=== PATIENT | male | born 2000 | race Caucasian/White ===

== ENCOUNTER 2019-02-18 13:30 | Emergency (ER) | payer MEDICAID, SELFPAY ==
[2019-02-11 14:28] VITALS: BMI 16.0
[2019-02-18 13:30] VITALS: BP 118/76; PULSE 111; RESP 18; TEMP 36.8; O2SAT 98; BMI 16.7
[2019-02-18 14:55] LABS: Absolute Lymphocyte Count 2.23 X10^3/uL (0.83-4.51); Absolute Neutrophil Count 5.8 X10^3/uL (2.0-7.7); Basophil# 0.03 X10^3/uL; Basophil% 0.3 % (0-1); Eosinophil# 0.48 X10^3/uL; Eosinophils% 5.3 % (0-5); Hematocrit 44.3 % (40-54); Lymphocyte # 2.23 X10^3/ul (4.0); Lymphocyte % 24.5 % (19-41); Mean Corp Hgb Conc 33.9 g/dL (32-36); Mean Corpuscular Hgb 30.5 pg (27.0-32.0); Mean Corpuscular Volume 90.2 fL (80-94); Mean Platelet Vol. 9.3 fl (6.2-12.0); Monocyte# 0.58 X10^3/uL; Monocyte% 6.4 % (0-10); NRBC Flagged by Analyzer 0 % (0-5); Neutrophil # 5.75 X10^3/uL (2.7-7.7); Neutrophil % 63.3 % (47-70); Platelet Count 300 K/mm3 (150-450); RBC Distribution Width CV 12.6 % (11.6-14.6); RBC Distribution Width SD 41.6 fl (35.1-43.9); Red Blood Count 4.91 M/mm3 (4.6-6.2); White Blood Count 9.1 K/mm3 (4.4-11.0)
[2019-02-18 15:12] LABS: AST(SGOT) 23 U/L (15-37); Alanine Aminotransfer ALT/SGPT 31 U/L (16-61); Albumin, Serum 4.3 g/dL (3.2-5.0); Alkaline Phosphatase 87 U/L (45-117); Anion Gap 4 (5-15); BUN 10 mg/dL (7-18); BUN/Creat Ratio 14.5 RATIO (10-20); Bilirubin, Direct 0.13 mg/dL (0.00-0.30); Calcium,Total 9.1 mg/dL (8.5-10.1); Chloride 108 mmol/L (98-107); Creatinine, Serum 0.69 mg/dL (0.70-1.30); EST Glomerular Filtration Rate 155 mL/min (>60); Est Glom Filt Rate - Afr Amer 187 mL/min (>60); Estimated Creatinine Clearance 124.64 ml/min; Globulin 3.8 g/dL (2.2-4.2); Glucose 117 mg/dL (74-106); Lipase 143 U/L (73-393); Potassium 3.8 mmol/L (3.5-5.1); Protein, Total 8.1 g/dL (6.4-8.2); Sodium Level 142 mmol/L (136-145)
--- NOTE | 2019-02-18 15:22 | ED.DCSUM_ITS ---
History of Present Illness Chief Complaint: GI Bleed Narrative: 18-year-old male with a history of autism presents with blood in his stool for the past several months. He saw the mechatronics technician in [place] and had negative stool studies. He was recommended to have a colonoscopy. They have been unable to find a GI doctor that will take his care source insurance. His symptoms have not become suddenly worse. He is still having brown formed stool but with occasional streaks of blood mixed in with it. No dark or tarry stool. No vomiting. No recent weight loss. No fever/chills. He does not appear to be complaining of any rectal discomfort or abdominal discomfort. History from the patient himself is somewhat limited because of his underlying mental status. Past Medical History - Allergies and Home Meds Allergies/Adverse Reactions: Allergies Macrolide Antibiotics Allergy (Intermediate, Verified 02/18/19 13:32) Hives phenytoin [From Dilantin] Allergy (Intermediate, Verified 02/18/19 13:32) hives Penicillins Allergy (Verified 02/18/19 13:32) Unknown Primary Care Physician: Rod Tate MD [Primary Care Provider] - Smoking Status: Never smoker Review of Systems ROS: Unable to Obtain Gastrointestinal: Reports: Hematochezia. Denies: Diarrhea, Constipation, Melena Physical Exam Vital Signs/Narrative: Vital Signs Temp Pulse Resp BP Pulse Ox 02/18/19 13:30 98.2 F 111 H 18 118/76 98 General: Well nourished, Well developed, No Acute Distress Head: Normocephalic, Atraumatic Eyes: Perrl, EOMI ENT: Moist mucous membranes, No rhinorrhea Neck: Supple, Nontender Cardiovascular: Regular rate, Regular rhythm, No murmurs Respiratory: No distress, CTA bilaterally, Chest nontender Abdomen: Soft, Nontender, Nondistended, Normal bowel sounds Back: Nontender, Normal Inspection Extremities: Nontender, No edema Skin: Normal color, No rash Neurological: Alert, Oriented x3, Cranial nerves II-XII grossly intact, Normal Strength, Normal Sensation Psychological: Normal affect, Normal Mood Diagnostic/Tx/Re-eval - Medical Decision Making Labs are fairly unremarkable. He is not anemic. BUN not elevated. His parents state that he has already undergone imaging including a CT scan so I did not feel it was necessary to repeat it with his normal blood work. I do feel it is reasonable for him to follow-up with a GI doctor however and undergo colonoscopy. I will make a referral. He is already established at [facility] and is able to be seen there until he is 19. I think the safest approach for now would be for him to undergo the colonoscopy there because they know for sure that his insurance is accepted. They can then make a referral to an adult mechatronics technician if indicated. He looks quite well and is not in any distress. He was somewhat resistant to a rectal examination and his parents state that because of his underlying condition, he will not want to undergo this procedure. Since his hemoglobin is normal, I do not feel that we will change the course of treatment currently. ED Disposition - Plan for ED Patient: Disposition: Home or Assisted Living Diagnosis: Rectal bleeding Instructions: RECTAL BLEED, Stable Referrals: Rod Tate MD [Primary Care Provider] -
--- NOTE | 2019-02-18 15:52 | ED.RN ---
1540-in with dr. haro to do rectal exam. no sign of bleeing or hemorhoid noted.
== END 2019-02-18 15:53 | disposition home or self-care (01) ==
PROVIDERS: Emergency Provider Emergency Medicine; Family Provider Internal Medicine; PCP Internal Medicine
DX: K62.5 Hemorrhage of anus and rectum (principal)
CPT/HCPCS: 80048; 80076; 83690; 85025; 99283; A4216

== ENCOUNTER → 2021-05-17 13:32 | Outpatient (CLI) | payer MEDICAID, SELFPAY ==
[2021-05-17 15:17] LABS: Absolute Lymphocyte Count 2.83 X10^3/uL (0.83-4.51); Basophil# 0.05 X10^3/uL; Basophil% 0.5 % (0-1); Eosinophil# 0.92 X10^3/uL; Eosinophils% 9.6 % (0-5); Hematocrit 49.3 % (40-54); Hemoglobin 16.4 g/dL (13.0-16.5); Lymphocyte # 2.83 X10^3/ul (0.83-4.51); Lymphocyte % 29.6 % (19-41); Mean Corp Hgb Conc 33.3 g/dL (32-36); Mean Corpuscular Hgb 29.1 pg (27.0-32.0); Mean Corpuscular Volume 87.4 fL (80-94); Monocyte# 0.75 X10^3/uL; Monocyte% 7.8 % (0-10); NRBC Flagged by Analyzer 0 % (0-5); Neutrophil # 4.98 X10^3/uL (2.7-7.7); Neutrophil % 52.1 % (47-70); Platelet Count 309 K/mm3 (150-450); RBC Distribution Width CV 12.6 % (11.6-14.6); RBC Distribution Width SD 40.1 fl (35.1-43.9); Red Blood Count 5.64 M/mm3 (4.6-6.2); White Blood Count 9.6 K/mm3 (4.4-11.0)
[2021-05-17 15:40] LABS: ALB/GLOB Ratio 0.8 RATIO (0.9-2.4); AST(SGOT) 39 U/L (15-37); Alanine Aminotransfer ALT/SGPT 74 U/L (16-61); Albumin, Serum 3.7 g/dL (3.2-5.0); Alkaline Phosphatase 132 U/L (45-117); Anion Gap 8 (5-15); BUN 13 mg/dL (7-18); BUN/Creat Ratio 19.6 RATIO (10-20); Calcium,Total 9.4 mg/dL (8.5-10.1); Chloride 105 mmol/L (98-107); Creatinine, Serum 0.66 mg/dL (0.70-1.30); EST Glomerular Filtration Rate 159 mL/min (>60); Est Glom Filt Rate - Afr Amer 192 mL/min (>60); Globulin 4.4 g/dL (2.2-4.2); Glucose 110 mg/dL (74-106); Protein, Total 8.1 g/dL (6.4-8.2); Sodium Level 139 mmol/L (136-145)
== END ==
PROVIDERS: PCP Internal Medicine; Visit Provider Internal Medicine
DX: Z01.818 Encounter for other preprocedural examination (principal); F32.9 Major depressive disorder, single episode, unspecified; F41.9 Anxiety disorder, unspecified; F84.0 Autistic disorder
CPT/HCPCS: 36415; 80053; 85025

== ENCOUNTER 2021-08-08 13:30 | Outpatient (CLI) | payer MEDICAID, SELFPAY ==
[2021-08-08 15:14] LABS: Absolute Lymphocyte Count 2.89 X10^3/uL (0.83-4.51); Absolute Neutrophil Count 4.8 X10^3/uL (2.0-7.7); Basophil# 0.04 X10^3/uL; Basophil% 0.4 % (0-1); Eosinophil# 0.67 X10^3/uL; Eosinophils% 7.4 % (0-5); Hematocrit 51.2 % (40-54); Hemoglobin 17.4 g/dL (13.0-16.5); Lymphocyte # 2.89 X10^3/ul (0.83-4.51); Lymphocyte % 31.7 % (19-41); Mean Corpuscular Hgb 29.8 pg (27.0-32.0); Mean Corpuscular Volume 87.7 fL (80-94); Mean Platelet Vol. 11.1 fl (6.2-12.0); Monocyte# 0.71 X10^3/uL; Monocyte% 7.8 % (0-10); NRBC Flagged by Analyzer 0 % (0-5); Neutrophil # 4.77 X10^3/uL (2.7-7.7); Neutrophil % 52.4 % (47-70); Platelet Count 252 K/mm3 (150-450); RBC Distribution Width CV 13.1 % (11.6-14.6); RBC Distribution Width SD 41.6 fl (35.1-43.9); Red Blood Count 5.84 M/mm3 (4.6-6.2); White Blood Count 9.1 K/mm3 (4.4-11.0)
[2021-08-08 15:39] LABS: ALB/GLOB Ratio 0.9 RATIO (0.9-2.4); AST(SGOT) 28 U/L (15-37); Alanine Aminotransfer ALT/SGPT 63 U/L (16-61); Alkaline Phosphatase 143 U/L (45-117); Anion Gap 7 (5-15); BUN 11 mg/dL (7-18); BUN/Creat Ratio 14.6 RATIO (10-20); Chloride 107 mmol/L (98-107); Creatinine, Serum 0.75 mg/dL (0.70-1.30); EST Glomerular Filtration Rate 137 mL/min (>60); Est Glom Filt Rate - Afr Amer 165 mL/min (>60); Globulin 4.4 g/dL (2.2-4.2); Glucose 95 mg/dL (74-106); Protein, Total 8.4 g/dL (6.4-8.2); Sodium Level 140 mmol/L (136-145); Thyroid Stim Hormone (TSH) 0.85 uIU/mL (0.358-3.74)
== END 2021-08-08 23:59 | disposition home or self-care (01) ==
LOC: BIMLAB 13:31
PROVIDERS: PCP Internal Medicine; Referring Provider Nurse Practitioner Family; Visit Provider Nurse Practitioner Family
DX: Z01.818 Encounter for other preprocedural examination (principal)
CPT/HCPCS: 36415; 80053; 84443; 85025

== ENCOUNTER 2021-10-05 15:25 | Outpatient (CLI) | payer MEDICAID, SELFPAY ==
[2021-10-05 15:58] LABS: Absolute Lymphocyte Count 2.67 X10^3/uL (0.83-4.51); Absolute Neutrophil Count 5.6 X10^3/uL (2.0-7.7); Basophil# 0.02 X10^3/uL; Basophil% 0.2 % (0-1); Eosinophil# 0.38 X10^3/uL; Hematocrit 47.9 % (40-54); Hemoglobin 16.4 g/dL (13.0-16.5); Lymphocyte # 2.67 X10^3/ul (0.83-4.51); Lymphocyte % 28.3 % (19-41); Mean Corp Hgb Conc 34.2 g/dL (32-36); Mean Corpuscular Hgb 29.4 pg (27.0-32.0); Mean Platelet Vol. 9.3 fl (6.2-12.0); Monocyte# 0.71 X10^3/uL; Monocyte% 7.5 % (0-10); NRBC Flagged by Analyzer 0 % (0-5); Neutrophil # 5.63 X10^3/uL (2.7-7.7); Neutrophil % 59.6 % (47-70); Platelet Count 332 K/mm3 (150-450); RBC Distribution Width CV 12.5 % (11.6-14.6); RBC Distribution Width SD 38.8 fl (35.1-43.9); Red Blood Count 5.57 M/mm3 (4.6-6.2); White Blood Count 9.5 K/mm3 (4.4-11.0)
[2021-10-05 16:02] LABS: Erythrocyte Sedimentation Rate 15 mm/hr (0-20)
[2021-10-05 16:06] LABS: Prothrombin Time (Protime)PT. 13.1 SECONDS (11.7-14.9)
[2021-10-05 16:41] LABS: Hemoglobin A1c 5.2 % (3.8-5.6)
[2021-10-05 17:00] LABS: AST(SGOT) 25 U/L (15-37); Alanine Aminotransfer ALT/SGPT 49 U/L (16-61); Albumin, Serum 4.1 g/dL (3.2-5.0); Alkaline Phosphatase 121 U/L (45-117); Anion Gap 6 (5-15); BUN 14 mg/dL (7-18); BUN/Creat Ratio 19.9 RATIO (10-20); CRP < 2.90 mg/L (0.0-3.0); Calcium,Total 9.1 mg/dL (8.5-10.1); Chloride 105 mmol/L (98-107); EST Glomerular Filtration Rate 147 mL/min (>60); Est Glom Filt Rate - Afr Amer 178 mL/min (>60); Ferritin 54 ng/mL (26-388); Glucose 100 mg/dL (74-106); LDH 193 U/L (87-241); Potassium 3.7 mmol/L (3.5-5.1); Protein, Total 8.1 g/dL (6.4-8.2); Sodium Level 136 mmol/L (136-145)
[2021-10-07 15:11] LABS: Anti-Centromere B Ab <0.2 AI (0.0-0.9); Anti-Chromatin <0.2 AI (0.0-0.9); Anti-Jo <0.2 AI (0.0-0.9); Anti-Scleroderma-70 AB <0.2 AI (0.0-0.9); RNP Ab <0.2 AI (0.0-0.9); SJOGREN'S Anti-SS-A test < 0.2 AI (0.0-0.9); SJOGREN'S Anti-SS-B test < 0.2 AI (0.0-0.9); Smith Ab <0.2 AI (0.0-0.9)
[2021-10-08 16:20] LABS: Anti-Mitochondrial AB <20.0 Units (0.0-20.0); Anti-dsDNA Ab <1 IU/mL (0-9)
[2021-10-13 22:07] LABS: Angiotensin Convert Enzyme 52 U/L (14-82); Ceruloplasmin 22.9 mg/dL (16.0-31.0); Cytoplasmic Ab (C-ANCA) <1:20 titer (Neg:<1:20); HEPATITIS B SURFACE AG Negative (Negative); Hepatitis A IgM Antibody Negative (Negative); Hepatitis B Core AB IgM Negative (Negative); Immunoglobulin A 257 mg/dL (90-386); Immunoglobulin E 25 IU/mL (6-495); Immunoglobulin G 1147 mg/dL (603-1613); Immunoglobulin M 118 mg/dL (20-172)
[2021-10-13 22:59] LABS: AFP, Tumor Marker 1.3 ng/mL (0.0-5.7); Anti-Smooth Muscle ABS 6 Units (0-19); Copper, Serum or Plasma 106 ug/dL (63-121); Haptoglobin 166 mg/dL (17-317); Hep C Antibodies 0.1 s/co ratio (0.0-0.9); Perinuclear Ab (P-ANCA) <1:20 titer (Neg:<1:20)
== END 2021-10-05 23:59 | disposition home or self-care (01) ==
LOC: LAB 15:26
PROVIDERS: PCP Internal Medicine; Referring Provider Internal Medicine Gastroenterology; Visit Provider Internal Medicine Gastroenterology
DX: K21.9 Gastro-esophageal reflux disease without esophagitis (principal); R79.89 Other specified abnormal findings of blood chemistry
CPT/HCPCS: 36415; 80053; 80074; 82105; 82140; 82164; 82390; 82525; 82728; 82784; 82785; 83010; 83036; 83516; 83615; 85025; 85610; 85652; 86140; 86225; 86235; 86256

== ENCOUNTER → 2021-10-25 | Outpatient (CLI) | payer MEDICAID, SELFPAY ==
--- NOTE | 2021-10-25 08:07 | US_ITS ---
STUDY: ABDOMINAL ULTRASOUND - RIGHT UPPER QUADRANT REASON FOR VISIT: Male, 21 years old elevated lft TECHNIQUE: Ultrasound evaluation of the right upper quadrant was performed with real-time and static yepez-scale imaging. TECHNICAL QUALITY: Limited. Examination limited due to the patient?s condition. COMPARISON: None. FINDINGS: Liver: The liver measures 14.6 cm. There is increased echogenicity consistent with fatty infiltration. The bile ducts are within normal limits. There is hepatic color flow. The direction of portal flow is hepatopetal. There is no demonstrated mass lesion. Gallbladder: Normal distended gallbladder. The gallbladder wall measures 2.0 mm. There is a negative sonographic Gonzales''s sign. There is no pericholecystic fluid. There are no gallstones. Common Bile Duct (C.B.D.): The common bile duct measures 3 mm. Pancreas: There is nonvisualization of the pancreas due to overlying bowel gas. Right Kidney: Normal size of the right kidney. The right kidney measures 10.5 cm x 4.8 cm x 5 cm. Normal renal cortex. The right cortex measures 1.5 cm. There is no demonstrated renal mass or cyst. There is no right hydronephrosis. US/Abdomen Limited IMPRESSION: Fatty infiltration of the liver. Electronically Signed: Abhi Reed MD at 9:33 EDT ,
--- NOTE | 2021-10-25 08:10 | US_ITS ---
STUDY: ABDOMINAL ULTRASOUND - ELASTOGRAPHY REASON FOR VISIT: Male, 21 years old. Elevated liver function tests. TECHNIQUE: Liver stiffness measurements were obtained on a [employer] RS 85 ultrasound machine using a CA 1-7 probe following the SRU guidelines. 3 measurements were obtained using a 2-D-SWE method. The IQR/M was 11% suggesting a quality data set. TECHNICAL QUALITY: Adequate. COMPARISON: Comparison is made with prior study done earlier in the day. FINDINGS: Liver: Fatty infiltration of the liver. Median liver stiffness measured 6.3 kPa. US/Elastography Parenchyma/Organ IMPRESSION: Liver stiffness measures 6.3 kPa compatible with F2-F3 (Mild to moderate liver fibrosis) Metavir score. Electronically Signed: Abhi Reed MD at 10:54 EDT ,
== END | disposition home or self-care (01) ==
LOC: US 07:59
PROVIDERS: PCP Internal Medicine; Visit Provider Internal Medicine Gastroenterology
DX: K21.9 Gastro-esophageal reflux disease without esophagitis (principal); R79.89 Other specified abnormal findings of blood chemistry
CPT/HCPCS: 76705; 76981

== ENCOUNTER 2022-01-01 07:43 | Day surgery (SDC) | payer MEDICAID, SELFPAY ==
[2022-01-01] VITALS (7 sets, daily range): BP systolic 97–127; BP diastolic 57–84; PULSE 47–91; RESP 16–18; TEMP 36.2–37.2; O2SAT 95–100; BMI 25.7
[2022-01-01] MEDS: Lactated Ringers 1,000 ML 15 ML IV (08:25)
--- NOTE | 2022-01-01 08:25 | PCM.HP.BLA ---
History and Physical Date of Admission: 01/01/22 ?Humza established with this clinic 10.05.21. He was previously seen by [facility] for diagnoses weight loss, blood in stool and EOE. History of nausea and vomiting that subsided in 2018/2018 timeframe. Additionally, has diagnoses of Autism causing anxiety and decreased social communication, sleep disturbance, decreased attentiveness. Seizure disorder. Father reports that he has been clearing his throat a lot recently and has also been asking for TUMs frequently. PCP prescribed omeprazole 40mg QD. Humza denies this waking him during the night, but that the burning in his chest bothers him. Father reports that his eating habits changes a couple months ago when Humza began reporting that certain foods (escobar) bothered his stomach. EGD performed 05.08.17 with biopsy results of duodenal mucosa with preserved jcgbf-wj-yciyese ratio without increase in intraepithelial lymphocytes; Stomach with chronic, inactive gastritis; Esophagus found EOE. H.Pylori negative. Allergen food panel negative for reaction to egg whites, cow?s milk, peanuts, soybeans, Kazakh walnuts, wheat, halibut, shrimp. Additional allergies to dust mites, perennial rye and jason grass. He was discovered to have some elevated liver function test and liver enzymes.? We got a FibroScan to evaluate his liver along with the liver ultrasound.? His liver ultrasound that showed a mildly enlarged liver with some fatty infiltrates along with some heterogenicity.? The FibroScan showed that he has a score of F2 F3.? He has lost some weight since the last time he was in the office.? There was some question to whether his liver enzymes were elevated secondary to medicine.? This was discussed with his family in the decision was to not get a liver biopsy at this time.? However if his repeat FibroScan does show worsening disease then he may need a liver biopsy. ROS Const Constitutional: No anorexia, fatigue, fever(s), weight change or sleep problems Eyes Eyes: No change in vision ENT ENT: No abnormal hearing, difficulty swallowing, mouth lesions, tongue swelling or throat swelling Resp Respiratory: No cough or shortness of breath Cardio Cardiology: No chest pain at rest, chest pain with exertion, shortness of breath or dyspnea on exertion Gastro GI: No difficulty swallowing Genitourinary Male: No difficulty urinating or burning urination Musc Musculoskeletal: No joint pain, joint swelling, muscle weakness or decreased muscle mass Skin Skin: No hair loss in leg, yellowing of the eye, itchy eyes, rash, skin ulcer or skin swelling Neuro Neurology: No abnormal hearing, abnormal movements, confusion, unsteady gait/balance or memory loss Psych Psychiatric: No anxiety, No confusion and No memory loss Endo Endocrine: No fatigue or weight change Aller/Imm Allergy/Immunologic: No itchy eyes, throat swelling or tongue swelling Mike/Lymp Hematologic/Lymphatic: No easy bleeding, easy bruising or enlarged lymph nodes Quality Reporting Tobacco Screening ([facility] 138) Smoking Status: Never smoker Assessment and Plan Assessment and Plan (1) Elevated LFTs: ?Status:?Acute ?Plan: Elevated liver enzymes thought to be secondary to nonalcoholic steatohepatitis.? He has a F2 to F3 score.? The plan will be to start him on ursodiol, vitamin E and or possible statin pending his serum cholesterol and triglycerides in the future.? I will repeat his Fibroscan in approximately 6 moths.? If there is a change and we will institute medical therapy and get a liver biopsy. (2) GERD (gastroesophageal reflux disease): ?Status:?Chronic ?Plan: Continue omeprazole at this time. (3) Eosinophilic esophagitis: ?Status:?Acute ?Plan: He is on omeprazole and we are assuming that this is PPI responsive eosinophilic esophagitis.? However he is having some regurgitation symptoms.? I suggested to his father that he undergo a video swallowing study however he does not think he is going to be very compliant with a study unless he is sedated.? We will perform an upper endoscopy to evaluate his previous diagnosis of eosinophilic esophagitis and we will possibly place a Dinh capsule to see if this is acid related regurgitation. I have re-examined the patient. There are no clinical changes since date of exam.
--- NOTE | 2022-01-01 08:45 | EGD_PTH ---
PATIENT: ASA YOUNGER LOC: JESS U#:[id number] AGE/SX: 21/M ROOM: RE01/01/[address]: Dr. Mohamud Grimes DO : 2000 BED: DIS: 01/01/2022 SPEC #: [id number] RECD: 01/01/22 09:52 STATUS: CHAVA SUKHDEEP #: [id number] JACKIE: 01/01/22 08:[address]: Mohamud Grimes DEPT: SURGICAL PATHOLOGY RECD BY: Kaelyn Talbot ENTERED: 01/01/22 13:00 SP TYPE: EGD BIOPSY [facility] DR: Dr. Rod Tate MD Tissues: A - Duodenum, NOS B - Pylorus C - Gastric fundus D - Stomach, NOS E - Esophagus, NOS Procedures: Special Stain Group II Surgery Specimen Level IV Alcian Blue/PAS (control) HEADER OPERATION: EGD ? PH probe ([facility]) PRE-OP DIAGNOSIS: Elevated LFTs, GERD, eosinophilic esophagitis TISSUE SUBMITTED: A ? Duodenum biopsy, B ? Pylorus biopsy, C ? Fundus biopsy, D ? GE junction biopsy, E ? Random esophagus biopsy MICROSCOPIC DIAGNOSIS A. Duodenum, biopsy: No pathologic change. B. Gastric pylorus, biopsy: Chronic inflammation. Focal intestinal metaplasia. No evidence of dysplasia. See comment. C. Gastric fundus, biopsy: Mild chronic inflammation. D. Gastroesophageal junction, biopsy: Gastroesophageal junctional mucosa with chronic inflammation. Focal changes of reflux. No evidence of goblet cell metaplasia. See comment. E. Esophagus, random biopsy: Consistent with eosinophilic esophagitis. Fragments of gastric mucosa with mild chronic inflammation. AM:ibrahima 01/02/2022 COMMENT B. The results of immunohistochemistry for Helicobacter pylori will be reported separately ([id number]). Alcian blue/PAS stain with matched control supports the above diagnosis. Immunohistochemistry ([id number]) for P53 and Ki-67 will be performed and results will be reported separately. D. Alcian blue/PAS stain with matched control supports the above diagnosis. MICROSCOPIC DESCRIPTION Slides are reviewed. GROSS DESCRIPTION A - Received in fixative is one container labeled with the patient's name and designated biopsy duodenum. The specimen consists of two irregular fragments of light garza soft tissue that in aggregate measure 0.6 x 0.3 x 0.1 cm. The specimen is totally submitted in one cassette. B - Received in fixative is one container labeled with the patient's name and designated biopsy pylorus. The specimen consists of one irregular fragment of light garza soft tissue that measures 0.3 x 0.3 x 0.1 cm. The specimen is totally submitted in one cassette. C - Received in fixative is one container labeled with the patient's name and designated biopsy fundus. The specimen consists of one irregular fragment of light garza soft tissue that measures 0.3 x 0.3 x 0.1 cm. The specimen is totally submitted in one cassette. D - Received in fixative is one container labeled with the patient's name and designated biopsy GE junction. The specimen consists of multiple irregular fragments of light garza soft tissue that in aggregate measure 0.5 x 0.4 x 0.1 cm. The specimen is totally submitted in one cassette. E - Received in fixative is one container labeled with the patient's name and designated biopsy random esophagus. The specimen consists of multiple irregular fragments of light garza soft tissue that in aggregate measure 1 x 0.2 x 0.1 cm. The specimen is totally submitted in one cassette. / SJ:rg 01/01/2022 TC:3 CPT: 72426 x5, 81454 x2
--- NOTE | 2022-01-01 08:45 | IMM_PTH ---
PATIENT: ASA YOUNGER LOC: EN U#:[id number] AGE/SX: 21/M ROOM: RE01/01/[address]: Dr. Mohamud Grimes DO : 2000 BED: DIS: 01/01/2022 SPEC #: [id number] RECD: 01/01/22 14:38 STATUS: CHAVA REQ #: [id number] JACKIE: 01/01/22 08:[address]: Mohamud Grimes DEPT: IMMUNOHISTOCHEMISTRY RECD BY: Louise Sanders ENTERED: 01/01/22 14:39 SP TYPE: IMMUNO OTHR DR: Dr. Rod Tate MD Tissues: B - Pyloric portion of stomach Procedures: H Pylori (initial) KI-67 (add) P53 (add) PHYSICIAN & INSTITUTION [place] [address] SPECIMEN INFORMATION: Tissue Source: B - Pylorus Clinical Info: Elevated LFTS, GERD, eosinophilic esophagitis Specimen Number: [id number] CPT code: 42396, 56715 x2 METHODOLOGY: Deparaffinized sections of prefer/formalin-fixed tissue or PAP/DQ stained slides are incubated with monoclonal/polyclonal antibodies/oligonucleotide probes. Localization is made via biotin free immunoperoxidase method. Appropriate controls are performed and reacted as expected. Results on target cell population are indicated in the following table: RESULTS: ANTIBODY / CLONE RESULT Block B H Pylori (polyclonal) negative P53 (DO-7) negative Ki-67 (30-9) positive, low These tests were developed and their performance characteristics determined by [facility]. They may not have been cleared or approved by the U.S. Food and Drug Administration. The FDA has determined that such clearance or approval is not necessary. The above immunohistochemical/dualISH markers are ordered and reviewed by the Pathologist. INTERPRETATION: B. Gastric pylorus, biopsy: Negative for Helicobacter pylori organisms. No evidence of dysplasia. AM:ibrahima 01/03/2022
--- NOTE | 2022-01-01 09:08 | OP.EGD_ITS ---
Patient Name: Humza Lobo Procedure Date: 01/01/2022 8:33 AM Date of : 2000 Age: 21 Procedure: Upper GI endoscopy Indications: Suspected reflux esophagitis, Failure to respond to medical treatment Providers: Mohamud Grimes DO Medicines: Monitored Anesthesia Care Patient Profile: This is a 21 year old male. Refer to note in patient chart for documentation of history and physical. Patient has symptoms of chronic cough, dysphagia with both liquids and solids and chronic regurgitation. Complications: No immediate complications. Procedure: Pre-Anesthesia Assessment: - Prior to the procedure, a History and Physical was performed, and patient medications and allergies were reviewed. The risks and benefits of the procedure and the sedation options and risks were discussed with the patient. All questions were answered and informed consent was obtained. Patient identification and proposed procedure were verified by the physician in the pre-procedure area. Mental Status Examination: alert and oriented. Airway Examination: normal oropharyngeal airway and neck mobility. Respiratory Examination: clear to auscultation. CV Examination: normal. Prophylactic Antibiotics: The patient does not require prophylactic antibiotics. Prior Anticoagulants: The patient has taken no previous anticoagulant or antiplatelet agents. ASA Grade Assessment: II - A patient with mild systemic disease. After reviewing the risks and benefits, the patient was deemed in satisfactory condition to undergo the procedure. The anesthesia plan was to use moderate sedation / analgesia (conscious sedation). Immediately prior to administration of medications, the patient was re-assessed for adequacy to receive sedatives. The heart rate, respiratory rate, oxygen saturations, blood pressure, adequacy of pulmonary ventilation, and response to care were monitored throughout the procedure. The physical status of the patient was re-assessed after the procedure. After obtaining informed consent, the endoscope was passed under direct vision. Throughout the procedure, the patient's blood pressure, pulse, and oxygen saturations were monitored continuously. The Endoscope was introduced through the mouth, and advanced to the second part of duodenum. The upper GI endoscopy was accomplished without difficulty. The patient tolerated the procedure well. Scope In: 8:51:36 AM Scope Out: 9:02:10 AM Total Procedure Duration Time 0 hours 10 minutes 34 seconds Findings: Mucosal changes including longitudinal furrows, small-caliber esophagus and white plaques were found in the upper third of the esophagus and in the middle third of the esophagus. Esophageal findings were graded using the Eosinophilic Esophagitis Endoscopic Reference Score (EoE-EREFS) as: Edema Grade 1 Present (decreased clarity or absence of vascular markings), Rings Grade 1 Mild (subtle circumferential ridges seen on esophageal distension), Exudates Grade 1 Mild (scattered white lesions involving less than 10 percent of the esophageal surface area), Furrows Grade 1 Present (vertical lines with or without visible depth) and Stricture none (no stricture found). Biopsies were obtained from the proximal and distal esophagus with cold forceps for histology of suspected eosinophilic esophagitis. Verification of patient identification for the specimen was done. Estimated blood loss was minimal. The Z-line was irregular and was found 38 cm from the incisors. Biopsies were taken with a cold forceps for histology. The MCGUIRE capsule with delivery system was introduced through the mouth and advanced into the esophagus, such that the MCGUIRE pH capsule was positioned 40 cm from the incisors, which was 6 cm proximal to the GE junction. Suction was applied to the well of the MCGUIRE pH capsule to suck in the adjacent mucosa of the esophagus using the external vacuum pump set at a minimum vacuum pressure of 550 mmHg for 30 seconds. The MCGUIRE pH capsule was then deployed by depressing the plunger on top of the handle to advance the locking pin into the mucosa, thereby attaching the capsule to the esophagus. The plunger was then rotated a quarter turn clockwise to release the capsule from the delivery system. The delivery system was then withdrawn. Endoscopy was utilized for probe placement and diagnostic evaluation. Patchy mildly erythematous mucosa without bleeding was found in the gastric fundus. Biopsies were taken with a cold forceps for histology. Verification of patient identification for the specimen was done. Estimated blood loss was minimal. Patchy mildly erythematous mucosa without bleeding was found at the pylorus. Biopsies were taken with a cold forceps for histology. Verification of patient identification for the specimen was done. Estimated blood loss was minimal. Diffuse mildly erythematous mucosa without active bleeding and with no stigmata of bleeding was found in the duodenal bulb. Impression: - Esophageal mucosal changes consistent with eosinophilic esophagitis. Biopsied. - Z-line irregular, 38 cm from the incisors. Biopsied. - Erythematous mucosa in the gastric fundus. Biopsied. - Erythematous mucosa in the pylorus. Biopsied. - Erythematous duodenopathy. - The MCGUIRE pH capsule was positioned 40 cm from the incisors, which was 6 cm proximal to the GE junction. Recommendation: - Discharge patient to home. - Resume previous diet. - Continue present medications. - Await pathology results. - Repeat upper endoscopy in 1 year for surveillance. - Return to GI office in 1 week. Procedure Code(s): --- Professional --- 88501, Esophagogastroduodenoscopy, flexible, transoral; with biopsy, single or multiple CPT copyright 2017 [employer]. All rights reserved. The codes documented in this report are preliminary and upon elder assistant review may be revised to meet current compliance requirements. Mohamud Grimes DO 01/01/2022 9:08:22 AM This report has been signed electronically. Number of Addenda: 1 Note Initiated On: 01/01/2022 8:33 AM Addendum Number: 1 Addendum Date: 03/28/2022 6:24:26 AM MAC was used as sedation for this procedure. Mohamud Grimes DO 03/28/2022 6:24:30 AM This report has been signed electronically.
--- NOTE | 2022-01-01 09:09 | OP.CCLET_ITS ---
03/28/2022 Rod Tate MD [address] [place] [address] [place] [address] Re : Upper GI endoscopy procedure for Humza Lobo Dear Dr. Tate This procedure was performed on Saturday, January 01, 2022. My impressions and recommendations are as follows: Impressions : - Esophageal mucosal changes consistent with eosinophilic esophagitis. Biopsied. - Z-line irregular, 38 cm from the incisors. Biopsied. - Erythematous mucosa in the gastric fundus. Biopsied. - Erythematous mucosa in the pylorus. Biopsied. - Erythematous duodenopathy. - The MCGUIRE pH capsule was positioned 40 cm from the incisors, which was 6 cm proximal to the GE junction. Recommendations : - Discharge patient to home. - Resume previous diet. - Continue present medications. - Await pathology results. - Repeat upper endoscopy in 1 year for surveillance. - Return to GI office in 1 week. My findings are described in the full procedure note, which is enclosed. If I can be of further assistance, please feel free to contact me at . Sincerely, Mohamud Grimes, 01/01/2022 9:08:22 AM This report has been signed electronically.
--- NOTE | 2022-01-18 08:00 | PCM.HP.BLA ---
History and Physical Date of Admission: 01/01/22 Study: 48-hour?Dinh?pH capsule was placed on esophagus during EGD on 01/01/22 ? Indications for?Dinh?pH Study: regurgitation while on omeprazole for EOE, ?acid reflux as cause for regurgitation ? Study Findings?? ? 48-hour overview: no significant acid exposure; acid exposure time 1.9%; longest reflux 3.5 min ? Using data from the worst of the two days, acid exposure time is 2.2%.?Percent acid exposure time?is the single parameter which has been shown to best correlate with endoscopic damage. Normal is <4.4% on the worst day, therefore this result is normal.? ? The?DeMeester Score?(normal is <14.72) on the worst of the two days is 8.3 which is?normal.?The DeMeester Score is a method of adding weights to six common pH measurement parameters, and presenting esophageal acid exposure data as a cumulative score.? ? Symptom Index (SI)?>50% is significant (it indicates that >50% of the observed symptoms were associated with regurgitation).? In this study, the SI is 0% which is not significant. ? Symptom Association Probability (SAP)?helps to determine if there is a true correlation between symptoms and regurgitation. SAP >95% indicates a likely correlation.? In this study, the SAP is 61.2% which does not indicate a true correlation.? ? Interpretation ? This is a normal study Charges/Coding Procedures Gastroenterology CF Procedures [id number]: 42233 Gastroesophageal reflux test
== END 2022-01-01 09:57 | disposition home or self-care (01) ==
LOC: EN 07:45 → AC 08:00
PROVIDERS: PCP Internal Medicine; Referring Provider Internal Medicine; Visit Provider Internal Medicine Gastroenterology
PROC: (CPT 43239; principal; 2022-01-01 08:40)
DX: K20.0 Eosinophilic esophagitis (principal); K29.70 Gastritis, unspecified, without bleeding; F84.0 Autistic disorder; F41.9 Anxiety disorder, unspecified; F32.A Depression, unspecified; Z79.899 Other long term (current) drug therapy; G89.29 Other chronic pain; K21.9 Gastro-esophageal reflux disease without esophagitis
CPT/HCPCS: 43239; 88305; 88313; 88341; 88342; J7120; J2405

== ENCOUNTER 2023-01-24 12:30 | Outpatient (RCR) | payer MEDICAID, SELFPAY ==
--- NOTE | 2022-08-06 17:04 | HP.OTEVAL_ITS ---
Patient's Visit Information HUMZA YOUNGER is a 22 year old M, referred to Occupational Therapy by LIZBETH Greenberg, with a diagnosis of Autistic disorder. Date of Evaluation: 08/06/22 Occupational Therapist: Annie Spencer - Subjective Humza arrived his grandpa. Referred to OT to work on life skills. Humza lives with his grandparents. Goes to visit his mom on weekends. previously involved in work at [employer], grandpa reports it didn't go well. Not involved in school, work, sports. - ADLs Comments: can doff clothing, assist for donning Eating: Use silverware Comments: good eater, prefers a spoon Comments: takes bath, needs help Comments: indep; needs assist to wipe Comments: needs help with grooming Comments: assist to sort laundry Comments: leisure: xbox and computer games - doesn't play online with others. every Saturday he goes to [employer] - through the board of [employer]. rigid with time - only eats at certain times, goes #2 at the same times and will not unless he is at that time. difficulty with understanding orientation of clothing or appropriateness for clothing based on weather - Visual/Perceptual Skills Comments: doesn't wear glasses - Cognitive Skills Follows Directions: Yes - Attention Attention: Fair - Goals Goal:: Patient will improve safety awareness and orientation, evidenced by ability to recall his grandparents phone number and address by d/c. Goal:: Patient will demonstrate improved participation in various IADL's (sorting laundry, cleaning, sorting various items, meal prep, taking trash out) as evidenced by ability to sort with 80% accuracy in the clinic and reported increase in participation in at least 2 new IADL activities at home by d/c. Goal:: Patient will improve indep with ADL's, evidenced by ability to complete grooming tasks (brushing teeth, washing hands, combing hair) with verbal cues only by d/c. Goal:: Patient will improve indep with ADL's, evidenced by ability to properly orient clothing 75% of opportunities by d/c. Goal:: Patient will participate in novel activity on at least 3 occasions with the ability to provide teachback of the task by d/c. - Rehabilitation General Assessment: Arrived with his grandpa after his grandma pursued a r eferral to OT to help with Humza's independence with life skills. Humza currently spends his days home with his grandparents playing video games. They work on getting him involved in daily tasks such as sorting laundry or preparing for meals but are looking to get him more independent with self-care activities and more involved in the community and socially. Humza was anxious during the evaluation and wanting to leave, reporting are we done yet but was able to be redirected and complete tasks asked of him. He participated in two games with therapist, using his stuffed animal to pretend to participate as well. Humza communicates verbally but is quiety and reserved. He would benefit from skilled OT to work on social interaction, improved indep with ADL's, improved work- readiness skills such as sorting/cleaning/folding,etc, and improved independence with general safety awareness (know his address and phone number). Recommend 1x/week for 12 weeks. Rehabilitation Potential: Good - Anticipated Interventions ADL Training Other Interventions: life skills training, social interaction, problem solving/executive functioning - Visit Plan Frequency: 1x/Week Duration: 3 Months TEXT: Thank you for the opportunity to evaluate your patient. For Medicare and Medicare HMO plans, please review the plan of care and approve it. It will need to be FAXED BACK to us at [phone] for Medicare purposes. Please let me know if there are questions or concerns regarding this plan of care. Physician Signature: Date:
--- NOTE | 2022-11-12 12:39 | OTREVAL_ITS ---
LIZBETH Greenberg, It has been my pleasure to treat ASA YOUNGER over the last 12 visits for Autistic disorder. Please see the progress note below for an update on the occupational therapy plan of care! Subjective: Pt arrived with Nestor this day; stated that eval was rough; out of routine. Objective/Function: Continues to requires max prompting for basic daily tasks, multi-step tasks, and is inconsistent with his ability to generate his address, phone number, and name. He would benefit from continued services to work on pre- vocational skills, indep with ADL's and IADL's, and occupational balance (healthy routine with exercise). Plan Frequency: 1x/Week Duration: 3 Months Visits in this POC: Re-Eval 11/01/22 (3 months-1x week) Plan: Cont POC 1x/week for an additional 6 weeks. Re-eval November or December 2022 to determine if d/c or continue. Would benefit from vocational program. Goals - Goals Patient Goals: Be More Independent in ADLS, Other Other: participation in more leisure activities, more occupational balance, participation in household tasks Goal:: Patient will complete a multi-step prevocational task with independence on at least 2 occasions by d/c. Goal:: Patient will improve safety awareness and orientation, evidenced by ability to recall his grandparents phone number and address by d/c. Goal:: Patient will demonstrate improved participation in various IADL's (sorting laundry, cleaning, sorting various items, meal prep, exercise, taking trash out) as evidenced by ability to sort with 80% accuracy in the clinic and reported increase in participation in at least 2 new IADL activities at home by d/c. Goal:: Patient will improve indep with ADL's, evidenced by ability to complete grooming tasks (brushing teeth, washing hands, combing hair) with verbal cues only by d/c. Goal:: Patient will improve indep with ADL's, evidenced by ability to properly orient clothing 75% of opportunities by d/c. Goal:: aPatient will participate in novel activity on at least 3 occasions with the ability to provide teachback of the task by d/c. Anticipated Interventions Anticipated Interventions: ADL Training Other Interventions: life skills training, social interaction, problem solving/executive functioning Please do not hesitate to contact me at [phone] by phone or if you have questions or concerns regarding this new plan of care! Sincerely, Annie Spencer
--- NOTE | 2023-01-03 16:44 | OTREVAL_ITS ---
Re-Evaluation Intro: LIZBETH Greenberg, It has been my pleasure to treat ASA YOUNGER over the last 6 visits for Autistic disorder. Please see the progress note below for an update on the occupational therapy plan of care! Subjective Subjective: Patient arrived with sarah for re-evaluation/determine POC moving forward. Objective Objective/Function: Patient has been participating in OT for a total of 6 sessio ns focusing on IADL independence, strengthening, establishing occupational balance and a better routine, indep address identification, and overall ability to complete a multi step task. Patient able to verbally state address with verbal cues to slow down for others to understand. He has begun taking trash out and sorting laundry at home as well. He would benefit from continued OT services to improve his independence with laundry at home such as folding towels, improve hand and upper body strength, improve independence with clothing orientation, and participate in meal prep tasks. hand strength: R wildlife control agent 25, L wildlife control agent 32 L lateral pinch 4, R lateral pinch 5 L tripod pinch 4, R tripod pinch 5 Plan Plan Frequency: 1x/Week Duration: 2 Months Plan: 1x/week for 8 weeks, 60 min sessions. Adjust POC as needed depending on progress Goals Goals Patient Goals: Be More Independent in ADLS and Other Other: participation in more leisure activities, more occupational balance, participation in household tasks Goal:: Patient will improve hand strength by 2 pounds each side for wildlife control agent strength by d/c. Goal:: Patient will complete a multi-step prevocational task with independence on at least 2 occasions by d/c. Goal:: Patient will improve safety awareness and orientation, evidenced by ability to recall his grandparents phone number and address by d/c (MET for address). Goal:: Patient will demonstrate improved participation in various IADL's (sorting laundry, cleaning, sorting various items, meal prep, exercise, taking trash out) as evidenced by ability to sort with 80% accuracy in the clinic and reported increase in participation in at least 2 new IADL activities at home by d/c. Goal:: Patient will improve indep with ADL's, evidenced by ability to complete grooming tasks (brushing teeth, washing hands, combing hair) with verbal cues only by d/c. Goal:: Patient will improve indep with ADL's, evidenced by ability to properly orient clothing 75% of opportunities by d/c. Goal:: Patient will participate in novel activity on at least 3 occasions with the ability to provide teachback of the task by d/c. Anticipated Interventions Anticipated Interventions Anticipated Interventions: Strengthening and ADL Training Other Interventions: life skills training, social interaction, problem solving/executive functioning Re-Evaluation Ending Re-evaluation ending: Please do not hesitate to contact me at [phone] by phone or Fax: if you have questions or concerns regarding this new plan of care! Sincerely, Annie Spencer
== END 2023-01-24 19:00 | disposition home or self-care (01) ==
LOC: OT 12:30
PROVIDERS: PCP Internal Medicine; Referring Provider Physician Assistant; Visit Provider Physician Assistant
DX: F84.0 Autistic disorder (principal)
CPT/HCPCS: 97110; 97166; 97530

== ENCOUNTER 2023-02-28 15:00 | Outpatient (RCR) | payer MEDICAID, SELFPAY ==
--- NOTE | 2023-03-04 12:21 | HP.OTDCSUM_ITS ---
Discharge Summary D/C Summary: It has been my pleasure to treat HUMZA YOUNGER under orders from LIZBETH Greenberg, for the diagnosis of Autistic disorder for a total of 11 visit(s). Please see the following information for a summary of their discharge status. Overall Improvement % Improvement: 40 Objective Objective/Function: R triple air valve tester 20# L triple air valve tester 15# post exercises. Goals Patient Goals: Be More Independent in ADLS and Other Other: participation in more leisure activates, more occupational balance, participation in house hold tasks. Goal:: Patient will complete a multi-step prevocational task with independence on at least 2 occasions by d/c. Goal:: Patient will improve safety awareness and orientation, evidenced by ability to recall his grandparents phone number and address by d/c (MET for address). Goal:: Patient will demonstrate improved participation in various IADL's (sorting laundry, cleaning, sorting various items, meal prep, exercise, taking trash out) as evidenced by ability to sort with 80% accuracy in the clinic and reported increase in participation in at least 2 new IADL activities at home by d/c. Goal:: Patient will improve indep with ADL's, evidenced by ability to complete grooming tasks (brushing teeth, washing hands, combing hair) with verbal cues only by d/c. Goal:: Patient will improve indep with ADL's, evidenced by ability to properly orient clothing 75% of opportunities by d/c. Goal:: Patient will participate in novel activity on at least 3 occasions with the ability to provide teachback of the task by d/c. Plan Plan: Continue POC: Re-Eval on 02/28/23 8 weeks- 1x week D/C Information Discharge Comments: Pt seen for 11 skilled OT sessions. Per grandpa report and goals pt made 40% improvement since start. Therapist guided pt in UE strengthening, address/phone number recall, incorporated IADL tasks during treatment sessions, and taught novel tasks. Pt demonstrates some recall with novel tasks, benefits from a visual timer to continue tasks, improved in ability to don pants with correct orientation, though continues to have difficulty with shirt. Pts Grandfather states he feels like Humza does like getting out of the house- Therapist ed. grandfather on supportive programs for Humza. Therapist gave Grandfather information on 3 different workshop/ adult day centers they could contact and tour to see what facility would best fit Humza for purposeful engagement in the work/social environments. As of this visit Grandfather/Grandmother had not contacted facilities. Pt D/C at this time due to min. progress towards goals d/c sentence: If there are questions or concerns regarding this patient's occupational therapy, please fell free to call me at [phone]. Thank you for the referral of this patient. Sincerely, Marixa Saucedo, OTR/L, CHT
== END 2023-02-28 19:00 | disposition home or self-care (01) ==
LOC: OT 15:00
PROVIDERS: PCP Internal Medicine; Referring Provider Physician Assistant; Visit Provider Physician Assistant
DX: F84.0 Autistic disorder (principal)
CPT/HCPCS: 97110; 97530

== ENCOUNTER 2024-02-26 08:43 | Day surgery (SDC) | payer MEDICAID, SELFPAY ==
[2024-02-26] VITALS (8 sets, daily range): BP systolic 105–128; BP diastolic 66–93; PULSE 68–83; RESP 16–17; TEMP 36.2–36.8; O2SAT 95–100; BMI 27.0
[2024-02-26] MEDS: Lactated Ringers 1,000 ML 15 ML IV (09:00)
--- NOTE | 2024-02-26 09:15 | PCM.PRE.AN2 ---
ASA Classification* ASA Classification ASA Classification: 3 Assessment & Plan Anesthesia* Anesthesia Assessment Anesthesia Assessment: Discussed sedation and/or anesthesia options, risks, benefits, and alternatives with patient/parents/legal guardian/POA. Questions invited. The patient/parents/legal guardian/POA seems to understand and agrees to proceed with anesthesia plan. Reviewed the physical assessment, medical history, allergy history and patient home medications list prior to surgery/procedure/anesthetic and documented any changes. Performed airway and anesthesia risk assessments. Anesthesia Type Anesthesia Type: MAC (see written pre anesthesia record for full assessment) Anesthesia Focused Assessment* Airway Assessment Mouth opens: >3 cm Mallampati Score: II Focused Labs Anesthesia Preop lab: CBC WBC 9.5 K/mm3 (4.4-11.0) 10/05/21 15:32 RBC 5.57 M/mm3 (4.6-6.2) 10/05/21 15:32 Hgb 16.4 g/dL (13.0-16.5) 10/05/21 15:32 Hct 47.9 % (40-54) 10/05/21 15:32 Plt Count 332 K/mm3 (150-450) 10/05/21 15:32 CHEMISTRY Potassium 3.7 mmol/L (3.5-5.1) 10/05/21 15:32 Sodium 136 mmol/L (136-145) 10/05/21 15:32 BUN 14 mg/dL (7-18) 10/05/21 15:32 Creatinine 0.70 mg/dL (0.70-1.30) 10/05/21 15:32 Glucose 100 mg/dL (74-106) 10/05/21 15:32 TSH 0.85 uIU/mL (0.358-3.74) 08/08/21 13:31 COAG PT 13.1 SECONDS (11.7-14.9) 10/05/21 15:32 Pre-Assessment Diagnosis/Proposed Procedure Planned Operative Procedure(s): EGD Anesthesia History 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 When Was Last Pacemaker Check QUESTION #4 FULL TEXT: You/Your Family Experience fever (hyperthermia) with Anesthesia Last Oral Intake Last Oral intake: Last Oral Intake NPO since Meds taken in AM with sips of water? Meds patient instructed to take am of surgery PONV PONV - biophysics professor: PONV - biophysics professor Female No 02/21/24 14:49 HX of Motion Sickness No 02/21/24 14:49 HX of N/V After Surgery No 02/21/24 14:49 Non-Smoker Yes 02/21/24 14:49 Duration of Surgery greater No 02/21/24 14:49 than 60 minutes Number of Risk Factors 1 02/21/24 14:49 PONV Score Low Risk 02/21/24 14:49 Height & Weight Height & Weight: Anesthesia: Height & Weight Height 5 ft 9 in 05/14/23 10:35 Respiratory Assessment Respiratory Assessment - biophysics professor: Respiratory Tract Infection Hx - biophysics professor Hx Respiratory Tract Infection No 02/21/24 14:49 STOP Sleep Apnea STOP Sleep Apnea - biophysics professor: STOP Sleep Apnea - biophysics professor Hx Hypertension No 02/21/24 14:49 Hx Sleep Apnea No 02/21/24 14:49 CPAP BIPAP Do you snore loudly (louder No 02/21/24 14:49 than talking or can be heard Do you often feel tired/ No 02/21/24 14:49 fatigued/ sleepy during daytime? Has anyone observed you stop No 02/21/24 14:49 breathing during sleep? STOP Results Negative 02/21/24 14:49 QUESTION #5 FULL TEXT : Do you snore loudly (louder than talking or can be heard through closed doors)? 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 Specify any problems Hx of Preganancy in last 3 N/A 02/21/24 14:49 Months Nurse Filling Out Transfusion NBUCHER 02/21/24 14:49 & Questions: Date: 02/21/24 02/21/24 14:49 Time: 14:49 02/21/24 14:49 Patient unable to answer at this time (ie. confused, unrespo /Reproduction History /Reproductive History - biophysics professor: /Reproductive Hx- biophysics professor Hx Now Gestational Age (in weeks): EDC: Hx Hx Para Hx Section SAB No 02/21/24 14:49 Active Medications Active Medications: Current Medications Generic Name Dose Route Start Last Admin Trade Name Freq PRN Reason Stop Dose Admin Lactated Ringer's 1,000 mls @ 15 mls/hr 02/26/24 09:00 IV .Q48H [facility] PFSH Medical History Autism Non-smoker History of dental examination GERD (gastroesophageal reflux disease) Chronic abdominal pain Preoperative evaluation to rule out surgical contraindication GI problem History of seizures as a child Seasonal allergies Anxiety and depression Home Medications ?Medication ?Instructions ?Recorded ?Last Taken ?Type clonidine HCl 0.1 mg tablet 0.1 mg PO QHS 02/11/19 Unknown History cetirizine 10 mg tablet 10 mg PO DAILY #120 tabs 05/14/23 Unknown Rx fluticasone propionate 50 2 spray intranasal DAILY #18.2 mL 05/14/23 Unknown Rx mcg/actuation nasal spray,suspension fluvoxamine 100 mg tablet 100 mg PO BID 05/14/23 Unknown History quetiapine 50 mg tablet 75 mg PO QHS 05/14/23 Unknown History spacer #1 ea 05/14/23 Unknown Rx budesonide 1 mg/2 mL suspension 1 mg (2 mL) inhalation DAILY #60 mL 06/21/23 Unknown Rx for nebulization albuterol sulfate 90 mcg/actuation 2 puff inhalation Q6H PRN 08/16/23 Unknown Rx aerosol inhaler shortness of breath or wheezing #8.5 grams omeprazole 40 mg capsule,delayed 40 mg PO DAILY #90 caps 12/11/23 Unknown Rx release Allergy/AdvReac Type Severity Reaction Status Date / Time Macrolide Antibiotics Allergy Intermediate Hives Verified 02/26/24 08:55 phenytoin (From Dilantin) Allergy Intermediate hives Verified 02/26/24 08:55 Penicillins Allergy Unknown Verified 02/26/24 08:55 Family History Grandfather Ulcerative colitis Uncle Ulcerative colitis Other Arthritis Asthma Depression with anxiety Hyperlipemia Surgical History Hx of colonoscopy History of esophagogastroduodenoscopy (EGD) Social History Smoking Status: Never smoker alcohol intake: never substance use type: does not use what type of physical activity do you participate in: none Review of Systems (Anesthesia) ROS Narrative System reviewed and no additional complaints, except as documented.
--- NOTE | 2024-02-26 09:45 | IMM_PTH ---
PATIENT: ASA YOUNGER LOC: EN U#:[id number] AGE/SX: 23/M ROOM: RE02/26/[address]: Dr. Mohamud Grimes DO : 2000 BED: DIS: 02/26/2024 SPEC #: [id number] RECD: 02/26/24 16:05 STATUS: CHAVA RENew #: [id number] JACKIE: 02/26/24 09:[address]: Mohamud Grimes DEPT: IMMUNOHISTOCHEMISTRY RECD BY: Jonatan Olmstead ENTERED: 02/26/24 16:05 SP TYPE: IMMUNO OTHR DR: Dr. Rod Tate MD Tissues: A - Gastric mucous membrane Procedures: H Pylori (initial) PHYSICIAN & INSTITUTION [place] [id number] SPECIMEN INFORMATION: Tissue Source: A- Gastric antrum Clinical Info: Eosinophilic esophagitis, cough, GERD, elevated LFT's Specimen Number: [id number] CPT code: 75666 METHODOLOGY: Deparaffinized sections of prefer/formalin-fixed tissue or PAP/DQ stained slides are incubated with monoclonal/polyclonal antibodies/oligonucleotide probes. Localization is made via biotin free immunoperoxidase method. Appropriate controls are performed and reacted as expected. Results on target cell population are indicated in the following table: RESULTS: ANTIBODY / CLONE RESULT Block A H Pylori (polyclonal) negative These tests were developed and their performance characteristics determined by [facility]. They may not have been cleared or approved by the U.S. Food and Drug Administration. The FDA has determined that such clearance or approval is not necessary. The above immunohistochemical/dualISH markers are ordered and reviewed by the Pathologist. INTERPRETATION: A. Gastric antrum, biopsy: Negative for Helicobacter pylori organisms. AM 02/27/2024
--- NOTE | 2024-02-26 09:45 | EGD_PTH ---
PATIENT: ASA YOUNGER LOC: EN U#:[id number] AGE/SX: 23/M ROOM: RE02/26/[address]: Dr. Mohamud Grimes DO : 2000 BED: DIS: 02/26/2024 SPEC #: [id number] RECD: 02/26/24 13:44 STATUS: CHAVA SUKHDEEP #: [id number] JACKIE: 02/26/24 09:[address]: Mohamud Grimes DEPT: SURGICAL PATHOLOGY RECD BY: Shannon Lamb ENTERED: 02/26/24 14:18 SP TYPE: EGD BIOPSY AVA DR: Dr. Rod Tate MD Tissues: A - Gastric mucous membrane B - Esophagus, NOS Procedures: Surgery Specimen Level IV HEADER OPERATION: EGD with biopsy PRE-OP DIAGNOSIS: Eosinophilic esophagitis, cough, GERD, elevated LTF's TISSUE SUBMITTED: A- Gastric antrum biopsy, B- Random esophagus biopsy MICROSCOPIC DIAGNOSIS A. Gastric antrum, biopsy: Chronic gastritis. B. Esophagus, random biopsy: Consistent with changes of reflux. See comment. / 02/27/2024 COMMENT A.The results of immunohistochemistry for Helicobacter pylori will be reported separately ([id number]). B. Eosinophils range in number from 1-5 per high power field. Clinical correlation is suggested. MICROSCOPIC DESCRIPTION Slides are reviewed. GROSS DESCRIPTION A. Received in fixative is one container labeled with the patient's name and designated Gastric antrum biopsy. The specimen consists of two irregular fragments of light garza soft tissue that in aggregate measure 0.6 x 0.4 x 0.1 cm. The specimen is totally submitted in one cassette. B. Received in fixative is one container labeled with the patient's name and designated Random esophagus biopsy. The specimen consists of multiple irregular fragments of light garza soft tissue that in aggregate measure 1.5 x 0.3 x 0.1 cm. The specimen is totally submitted in one cassette. 02/26/2024 TC:3 CPT:85332m8
--- NOTE | 2024-02-26 09:49 | PCM.HP.BLA ---
History and Physical Date of Admission: 02/26/24 ASA YOUNGER, is a 23 M who presents to the office today for follow up. Prior workup: ? EGD 05.08.17 duodenal pathology gastritis; EOE. H.Pylori neg *[facility]I established 10.05.21 to transfer care for management of blood in stool, EOE and weight loss. History of N/V that dissipated . Additional diagnosis of Autism with anxiety, decreased social communication, sleep disturbance, decreased attentiveness and a seizure disorder. Biochemical 10.05.21 CBC, ESR, haptoglobin, coag, CMP, CRP, LDH, ceruloplasmin, AFP, ROGER, A1c, ferritin, ammonia, GAME, GANESH comp, ANCA, AMA, ASM, hepatitis without pertinent abnormality. US/elastography 10.25.21 hepatic measurement 14.6cm with fatty infiltration, stiffness 6.3kPa OV 7.1.22 continues to frequently clear throat and request TUMs. Elevated LFT likely r/t medication. EGD with Dinh 01.01.22 mucosal changes EOE, path confirmed; irregular Zline; gastritis, metaplasia+; duodenitis. H.Pylori neg [place] 7: Day 1 [place] 8.3 upright>supine: Day 2 [place] 5.8 upright>supine OV 7.28.22 recommend long-term PPI to prevent EOE scarring OV 1.25.23 budesonide slurry ineffective. Recommend drinking water during meals as primary concern is cough with PO intake. OV 8.16.24 pt's parents report that pt is doing well, but for the last 3 weeks has been spitting up / vomiting every night around 7 pm when he is getting his bath. Pt's parents state that he will sometimes ask for tums if he has HB and states that they help. ROS Const Constitutional: No fatigue, fever(s) or weight change ENT ENT: No difficulty swallowing Gastro GI: Positive for heartburn and vomiting; No abdominal pain, belching, bloating, change in bowel habits, change in stool character, coffee ground emesis, constipation, cramping, diarrhea, difficulty swallowing, feeling full early, excessive flatus, incontinent of stools, Vomiting blood/hematemesis, Blood in stool, loose stools, Black,tarry stools, nausea/dyspepsia, pain with swallowing or other Musc Musculoskeletal: No joint pain Skin Skin: No yellowing of the eye or itchy eyes Psych Psychiatric: Positive for anxiety, Positive for depression, Positive for Compulsive Behavior and Positive for obsessions/compulsions Endo Endocrine: No fatigue or weight change Aller/Imm Allergy/Immunologic: No itchy eyes Mike/Lymp Hematologic/Lymphatic: No easy bleeding or easy bruising Exam Const General: cooperative and comfortable Other: made noises to express his displeasure when we recommended he drink water after his meals Assessment and Plan Assessment and Plan (1) Eosinophilic esophagitis: Status: Chronic Plan: d/c budesonide slurry since it didn't resolve the after-meal throat-clearing, which seems to be both behavioral and due to phlegm from milk. He was able to see pulmonary on consultation. However he cannot cooperate with pulmonary function test and the NIOX test. Since he does have eosinophilic esophagitis I think he would be a good candidate for Dupixent. We will also give him a as needed inhaler because he does have multiple coughing episodes that could be associated with eosinophilic esophagitis. (2) Elevated LFTs: Status: Acute Plan: Elevated liver enzymes thought to be secondary to nonalcoholic steatohepatitis. He has a F2 to F3 score. The plan will be to start him on ursodiol, vitamin E and or possible statin pending his serum cholesterol and triglycerides in the future. I will repeat his Fibroscan in approximately 6 moths. If there is a change and we will institute medical therapy and get a liver biopsy. (3) GERD (gastroesophageal reflux disease): Status: Chronic Plan: Continue omeprazole at this time. (4) Chronic cough: Status: Chronic Plan: His chronic cough could be secondary to eosinophilic asthma as he has eosinophilic esophagitis. It also could be secondary to the budesonide causing a local reaction with possible underlying infection such as [place] in his esophagus. Due to his mental retardation he is not able to give good history. He did elicit that he did not want to undergo evaluation by speech pathology with a video swallowing test. Therefore we decided to repeat his upper endoscopy with possible dilation and biopsies of his esophagus to see if his mucosa has decreased in number of eosinophils and his PPI is appropriate along with the budesonide. I have examined the patient and the H&P has been reviewed. There are no clinical changes since date of exam.
--- NOTE | 2024-02-26 10:11 | OP.EGD_ITS ---
Patient Name: Humza Lobo Procedure Date: 02/26/2024 9:49 AM Date of : 2000 Age: 23 Procedure: Upper GI endoscopy Indications: Functional Dyspepsia, Dysphagia Providers: Mohamud Grimes DO Medicines: Monitored Anesthesia Care Patient Profile: This is a 23 year old male. Refer to note in patient chart for documentation of history and physical. Patient has symptoms of chronic cough, chronic dysphagia and chronic dyspepsia. Complications: No immediate complications. Procedure: Pre-Anesthesia Assessment: - Prior to the procedure, a History and Physical was performed, and patient medications and allergies were reviewed. The patient is competent. The risks and benefits of the procedure and the sedation options and risks were discussed with the patient. All questions were answered and informed consent was obtained. Patient identification and proposed procedure were verified by the physician. Mental Status Examination: alert and oriented. Airway Examination: normal oropharyngeal airway and neck mobility. Respiratory Examination: clear to auscultation. CV Examination: normal. Prophylactic Antibiotics: The patient does not require prophylactic antibiotics. Prior Anticoagulants: The patient has taken no anticoagulant or antiplatelet agents. ASA Grade Assessment: II - A patient with mild systemic disease. After reviewing the risks and benefits, the patient was deemed in satisfactory condition to undergo the procedure. The anesthesia plan was to use monitored anesthesia care (MAC). Immediately prior to administration of medications, the patient was re-assessed for adequacy to receive sedatives. The heart rate, respiratory rate, oxygen saturations, blood pressure, adequacy of pulmonary ventilation, and response to care were monitored throughout the procedure. The physical status of the patient was re-assessed after the procedure. After obtaining informed consent, the endoscope was passed under direct vision. Throughout the procedure, the patient's blood pressure, pulse, and oxygen saturations were monitored continuously. The gastroscope was introduced through the mouth, and advanced to the second part of duodenum. The upper GI endoscopy was accomplished without difficulty. The patient tolerated the procedure well. Scope In: 9:57:54 AM Scope Out: 10:01:18 AM Total Procedure Duration Time 0 hours 3 minutes 24 seconds Findings: Mucosal changes including ringed esophagus, feline appearance and longitudinal furrows were found in the entire esophagus. Biopsies were obtained from the proximal and distal esophagus with cold forceps for histology of suspected eosinophilic esophagitis. Verification of patient identification for the specimen was done. Estimated blood loss was minimal. Localized mild inflammation characterized by congestion (edema) was found in the gastric antrum. Biopsies were taken with a cold forceps for histology. Verification of patient identification for the specimen was done. Estimated blood loss was minimal. No gross lesions were noted in the second portion of the duodenum. Impression: - Esophageal mucosal changes secondary to eosinophilic esophagitis. - Gastritis. Biopsied. - No gross lesions in the second portion of the duodenum. - Biopsies were taken with a cold forceps for evaluation of eosinophilic esophagitis. Recommendation: - Discharge patient to home. - Resume previous diet. - Continue present medications. - Await pathology results. Procedure Code(s): --- Professional --- 26040, Esophagogastroduodenoscopy, flexible, transoral; with biopsy, single or multiple CPT copyright 2021 [employer]. All rights reserved. The codes documented in this report are preliminary and upon rn staffing review may be revised to meet current compliance requirements. Mohamud Grimes DO 02/26/2024 10:11:40 AM This report has been signed electronically. Number of Addenda: 0 Note Initiated On: 02/26/2024 9:49 AM
--- NOTE | 2024-02-26 10:11 | OP.CCLET_ITS ---
02/26/2024 Rod Tate MD [address] [place] [address] [place] [address] Re : Upper GI endoscopy procedure for Humza Lobo Dear Dr. Tate This procedure was performed on Monday, February 26, 2024. My impressions and recommendations are as follows: Impressions : - Esophageal mucosal changes secondary to eosinophilic esophagitis. - Gastritis. Biopsied. - No gross lesions in the second portion of the duodenum. - Biopsies were taken with a cold forceps for evaluation of eosinophilic esophagitis. Recommendations : - Discharge patient to home. - Resume previous diet. - Continue present medications. - Await pathology results. My findings are described in the full procedure note, which is enclosed. If I can be of further assistance, please feel free to contact me at . Sincerely, Mohamud Grimes, 02/26/2024 10:11:40 AM This report has been signed electronically.
--- NOTE | 2024-02-26 10:11 | PCM.POST.ANE ---
Anesthesia: Postop Eval I Current Vital Signs Temperature: 98.1 F Pulse Rate: 74 Blood Pressure: 105/77 Respiratory Rate: 16 Pulse Ox: 96 Oxygen Delivery Method: Room Air Assessment Airway patent: Yes Spontaneous unlabored respirations: Yes Mental status: Asleep nausea: No Vomiting: No Anesthesia Complication: No Fluid Hydration Crystalloid volume administer (ml): 400 Total IV fluid infused: 400 Progress Note Anesthesia document: Postop Eval 1 completed: Yes
--- NOTE | 2024-02-26 10:47 | PCM.POSTANE2 ---
Anesthesia Postop Eval I Sum Postop Eval Completion status Anesthesia document: Postop Eval 1 completed: Yes Anesthesia Postop Eval I Summary Anesthesia Postop Eval I Summary: Anesthesia Postop Eval I: Assessment Summary Airway patent Yes 02/26/24 10:12 [email or web address] Spontaneous unlabored Yes 02/26/24 10:12 [email or web address] respirations Mental status Asleep 02/26/24 10:12 [email or web address] nausea No 02/26/24 10:12 [email or web address] Vomiting No 02/26/24 10:12 [email or web address] Anesthesia Postop Eval I: Fluid Summary Crystalloid volume administer 400 02/26/24 10:12 [email or web address] (ml) Colloids volume administered ( ml) Blood Product volume administered (ml) Total IV fluid infused 400 02/26/24 10:12 [email or web address] Anesthesia Postop Eval I: Summary Notes Anesthesia Complication No 02/26/24 10:12 [email or web address] Anesthesia Complication Comment: Post-operative progress note Anesthesia: Postop Eval II Evaluation Mental status: Awake Pain Level: 0 nausea: No Vomiting: No
== END 2024-02-26 10:43 | disposition home or self-care (01) ==
LOC: EN 08:46 → AC 08:48
PROVIDERS: PCP Internal Medicine; Referring Provider Internal Medicine; Visit Provider Internal Medicine Gastroenterology
PROC: 0DJ08ZZ Inspection of Upper Intestinal Tract, Via Natural or Artificial Opening Endoscopic (ICD-10-PCS; CPT 43235; principal; 2024-02-26 09:40)
DX: K29.50 Unspecified chronic gastritis without bleeding (principal); K20.0 Eosinophilic esophagitis; K21.9 Gastro-esophageal reflux disease without esophagitis; Z79.899 Other long term (current) drug therapy
CPT/HCPCS: 43239; 88305; 88342; J7120; J2405